=== PATIENT | male | born 1950 | race Caucasian/White ===

== ENCOUNTER → 2019-12-05 | Outpatient (CLI) | payer BC ==
--- NOTE | 2019-12-05 14:50 | XR ---
EXAMINATION TYPE: XR chest 2V DATE OF EXAM: 12/05/2019 COMPARISON: 04/27/2015 TECHNIQUE: PA and lateral views submitted. HISTORY: Cough FINDINGS: The lungs are clear and there is no pneumothorax, pleural effusion, or focal pneumonia. Biapical pl eural thickening. Mild prominence the right is stable. Hyperinflation suggests COPD. IMPRESSION: 1. No acute process. No acute infiltrate. 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
== END | disposition home or self-care (01) ==
LOC: RADXRMAIN 14:37
PROVIDERS: ATTEND Nurse Practitioner Family
DX: R05 Cough (principal)
CPT/HCPCS: 71046

== ENCOUNTER 2020-04-01 10:12 | Emergency (ER) | payer MEDICARE ==
[2020-04-01 10:18] VITALS: BP 166/87; PULSE 86; RESP 16; TEMP 98.2
[2020-04-01] MEDS ORDERED: DEXAMETHASONE 4 MG TAB PO STA (10:26)
[2020-04-01] MEDS ORDERED: CEPHALEXIN 500MG STARTER PACK 4 CAP BTL PO STA (10:28)
--- NOTE | 2020-04-01 10:29 | ED ---
Skin/Abscess/FB HPI - General Chief complaint: Skin/Abscess/Foreign Body Stated complaint: facial swelling Time Seen by Provider: 04/01/20 10:21 Source: patient, RN notes reviewed, old records reviewed Mode of arrival: ambulatory Limitations: no limitations - History of Present Illness Initial comments: 69-year-old male present emergency from she complaint rash . Patient states it started a few days ago after wearing a new mask was moderate and store. He states is a fabric mass. He states rash started shortly after and seemed worse and he finally discontinue wearing the mask states that he noticed some crusting yellow discharge on his chin, cheek region. He has no difficulty swallowing noted deep breathing. Patient states that he normally takes Zyrtec but has not taken last couple days and did not apply any creams to his face. He had no fevers or chills he states that he has a large carton any constant works in but does not feel there is exposed to anything new no new chemicals. Denies any concerns for poison krishna. - Related Data Home Medications Medication Instructions Recorded Confirmed Fluticasone/Salmeterol [Advair 1 inhalation PO RT-BID 02/24/15 04/27/15 250-50 Diskus] Zolpidem [Ambien] 10 mg PO HS PRN 02/24/15 04/27/15 Aspirin 81 mg PO DAILY 03/03/15 04/27/15 Albuterol Inhaler (Mhu) [Ventolin 2 puff INHALATION RT-Q6H PRN 04/27/15 04/27/15 Hfa Inhaler (Mhu)] Multivitamin [Men's Multi-Vitamin] 1 tab PO DAILY 04/27/15 04/27/15 Previous Rx's Medication Instructions Recorded Montelukast [Singulair] 10 mg PO HS #30 tab 03/03/15 ALPRAZolam [Xanax] 0.25 mg PO TID PRN #30 tab 04/29/15 Calcium Carb-Vit D 500Mg-200Un 2 each PO BID-W/MEALS #120 tab 04/29/15 [Oscal 500+D] Meclizine [Antivert] 6.25 mg PO BID PRN #30 tab 04/29/15 Cephalexin [Keflex] 500 mg PO Q6HR #40 cap 04/01/20 Mupirocin Calcium 2% Cream 1 applic TOPICAL TID #30 gm 04/01/20 [Bactroban Cream] Allergies Allergy/AdvReac Type Severity Reaction Status Date / Time No Known Allergies Allergy Verified 04/01/20 10:18 Review of Systems ROS Statement: Those systems with pertinent positive or pertinent negative responses have been documented in the HPI. ROS Other: All systems not noted in ROS Statement are negative. Past Medical History Past Medical History: Asthma, Pneumonia Additional Past Medical History / Comment(s): MURMUR, History of Any Multi-Drug Resistant Organisms: None Reported Past Surgical History: Tonsillectomy Additional Past Surgical History / Comment(s): MEDICAL- weak aortic valve, Past Anesthesia/Blood Transfusion Reactions: No Reported Reaction Past Psychological History: No Psychological Hx Reported Smoking Status: Never smoker Past Alcohol Use History: Occasional Past Drug Use History: Marijuana - Past Family History Father Family Medical History: Myocardial Infarction ([place]) Additional Family Medical History / Comment(s): AT GE 65 [place] Brother(s) Additional Family Medical History / Comment(s): X2 [place] Mother Family Medical History: COPD Additional Family Medical History / Comment(s): SMOKER,EMPHYSEMA General Exam Limitations: no limitations General appearance: alert, in no apparent distress Head exam: Present: atraumatic, normocephalic, normal inspection Eye exam: Present: normal appearance, PERRL, EOMI. Absent: scleral icterus, conjunctival injection, periorbital swelling ENT exam: Present: mucous membranes moist, TM's normal bilaterally, normal external ear exam. Absent: normal oropharynx (Lower lip swelling noted, no oral lesions no difficulty is on secretions) Neck exam: Present: normal inspection, full ROM. Absent: tenderness, meningismus, lymphadenopathy Respiratory exam: Present: normal lung sounds bilaterally. Absent: respiratory distress, wheezes, rales, rhonchi, stridor Cardiovascular Exam: Present: regular rate, normal rhythm, normal heart sounds. Absent: systolic murmur, diastolic murmur, rubs, gallop, clicks Skin exam: Present: warm, dry, intact, normal color, rash (There is erythema, swelling, some blistering with yellow crusting, discharge noted over the cheeks, lower chin region and distribution in the shape of a mask) Course Vital Signs 04/01/20 10:17 Temperature 98.2 F Pulse Rate 86 Respiratory 16 Rate Blood Pressure 166/87 O2 Sat by Pulse 98 Oximetry Medical Decision Making - Medical Decision Making 69-year-old male present for rash, facial swelling. I do believe this is related to his mask which was new causing ALLERGIC reaction though he has secondary staph infection. Patient placed on oral antibiotics, Bactroban cream. Patient was given steroids and advised to continue antihistamines he states he does not tolerate Benadryl well. Patient will continue Zyrtec. Patient denies have recheck tomorrow return for any worsening symptoms. Disposition Clinical Impression: Contact dermatitis, Facial cellulitis Disposition: HOME SELF-CARE Condition: Stable Instructions (If sedation given, give patient instructions): Cellulitis (ED) Additional Instructions: Continue antihistamines as directed. Please return to the Emergency Department if symptoms worsen or any other concerns. Prescriptions: Mupirocin Calcium 2% Cream [Bactroban Cream] 1 applic TOPICAL TID #30 gm Cephalexin [Keflex] 500 mg PO Q6HR #40 cap Is patient prescribed a controlled substance at d/c from ED?: No Referrals: Kal Alaniz MD [Primary Care Provider] - 1-2 days Time of Disposition: 10:29
== END 2020-04-01 10:41 | disposition home or self-care (01) ==
LOC: EC 10:12
DX: L25.8 Unspecified contact dermatitis due to other agents (principal); L03.211 Cellulitis of face; J45.909 Unspecified asthma, uncomplicated
CPT/HCPCS: 99283; J8540

== ENCOUNTER → 2022-08-15 | Outpatient (CLI) | payer MEDICARE ==
--- NOTE | 2022-09-19 11:24 | EM ---
EVENT MONITOR FINDINGS: This was a 30-day event monitor, but the patient wore it only for 5 days. There were several recordings noted. Most of these were manual-triggered rhythm strips. Predominant rhythm is sinus. There was 1 episode, which was an auto-trigger at about 12:50 a.m. on 08/18/2022, and this was about a 10- to 14-beat run of paroxysmal atrial tachycardia. All other rhythm strips were basically sinus mechanism with some artifact. There was another episode of wide QRS tachycardia that occurred on 08/22/2022, at 09:50 p.m. Again, this was an auto-trigger. FINAL IMPRESSION: Predominant rhythm is sinus. There were 2 brief episodes of atrial tachycardia, one of 14 beats and another one of about 8 to 10 beats. There was 1 wide QRS tachycardia run of about 5 beats noted. All of these were auto-trigger. The patient's manual-trigger rhythm strips were all sinus. MMODL / IJN: [id number] /
== END | disposition home or self-care (01) ==
LOC: RADECHMAIN 07:52
PROVIDERS: ATTEND Family Medicine
DX: I47.1 Supraventricular tachycardia (principal); R00.2 Palpitations
CPT/HCPCS: 93270

== ENCOUNTER 2024-04-15 13:05 | Emergency (ER) | payer MEDICARE, BC ==
[2024-04-15 13:10] VITALS: RESP 18
--- NOTE | 2024-04-15 14:35 | XR ---
EXAMINATION TYPE: XR foot complete RT DATE OF EXAM: 04/15/2024 2:30 PM CLINICAL INDICATION:Male, 73 years old with history of pain; COMPARISON: None TECHNIQUE: XR foot complete RT examined in the AP, oblique, and lateral projections. FINDINGS: No evidence of any acute osseous pathology. No evidence of soft tissue swelling. Multifocal degenera tion changes throughout the joints of the foot with osteophyte formation and joint space narrowing. C alcaneal plantar spurring is present. Mild hallux valgus. IMPRESSION: 1. No evidence of acute fracture. 2. Mild calcaneal spurring. 3. Multifocal degeneration changes throughout the joints of the foot. 4. Mild hallux valgus.
--- NOTE | 2024-04-15 15:11 | ED ---
General Adult HPI - General Chief complaint: Extremity Problem,Nontraumatic Stated complaint: R Foot Pain Time Seen by Provider: 04/15/24 13:42 Source: patient, RN notes reviewed Mode of arrival: wheelchair Limitations: no limitations - History of Present Illness Initial comments: 73-year-old male presents to the emergency department for evaluation of right foot pain. He states that this started 2 to 3 days ago but has been worse today. He notes that he has a lot of pain when he puts pressure on the ball of his foot. He states the pain does not radiate. He has not experienced this in the past. He has not taken anything for the pain. He denies any overlying skin changes, prior injury. Denies recent fever, chills. - Related Data Home Medications Medication Instructions Recorded Confirmed Fluticasone Propion/Salmeterol 1 inhalation PO RT-BID 02/24/15 04/27/15 [Advair 250-50 Diskus] Zolpidem [Ambien] 10 mg PO HS PRN 02/24/15 04/27/15 Aspirin 81 mg PO DAILY 03/03/15 04/27/15 Albuterol Inhaler [Ventolin Hfa 2 puff INHALATION RT-Q6H PRN 04/27/15 04/27/15 Inhaler] Multivitamin [Men's Multi-Vitamin] 1 tab PO DAILY 04/27/15 04/27/15 Previous Rx's Medication Instructions Recorded Montelukast [Singulair] 10 mg PO HS #30 tab 03/03/15 ALPRAZolam [Xanax] 0.25 mg PO TID PRN #30 tab 04/29/15 Calcium Carb-Vit D 500Mg-5Mcg 2 each PO BID-W/MEALS #120 tab 04/29/15 [Oscal 500+D 5 Mcg (200 Iu)] Meclizine [Antivert] 6.25 mg PO BID PRN #30 tab 04/29/15 Cephalexin [Keflex] 500 mg PO Q6HR #40 cap 04/01/20 Mupirocin Calcium 2% Cream 1 applic TOPICAL TID #30 gm 04/01/20 [Bactroban Cream] Oseltamivir [Tamiflu] 75 mg PO Q12HR 5 Days #10 cap 02/23/22 predniSONE [Deltasone] 40 mg PO DAILY 5 Days #10 tab 02/23/22 Ketorolac [Toradol] 10 mg PO Q8HR #9 tab 04/15/24 Allergies Allergy/AdvReac Type Severity Reaction Status Date / Time No Known Allergies Allergy Verified 04/15/24 13:10 Review of Systems ROS Statement: Those systems with pertinent positive or pertinent negative responses have been documented in the HPI. ROS Other: All systems not noted in ROS Statement are negative. Past Medical History Past Medical History: Asthma, Pneumonia Additional Past Medical History / Comment(s): MURMUR, History of Any Multi-Drug Resistant Organisms: None Reported Past Surgical History: Tonsillectomy Additional Past Surgical History / Comment(s): MEDICAL- weak aortic valve, Past Anesthesia/Blood Transfusion Reactions: No Reported Reaction Past Psychological History: No Psychological Hx Reported Smoking Status: Never smoker Past Alcohol Use History: Occasional Past Drug Use History: Marijuana - Past Family History Father Family Medical History: Myocardial Infarction ([place]) Additional Family Medical History / Comment(s): AT GE 65 [place] Brother(s) Additional Family Medical History / Comment(s): X2 [place] Mother Family Medical History: COPD Additional Family Medical History / Comment(s): SMOKER,EMPHYSEMA General Exam Limitations: no limitations General appearance: alert, in no apparent distress Head exam: Present: atraumatic, normocephalic, normal inspection Eye exam: Present: normal appearance, PERRL, EOMI. Absent: scleral icterus, conjunctival injection, periorbital swelling Respiratory exam: Present: normal lung sounds bilaterally. Absent: respiratory distress, wheezes, rales, rhonchi, stridor Cardiovascular Exam: Present: regular rate, normal rhythm, normal heart sounds. Absent: systolic murmur, diastolic murmur, rubs, gallop, clicks Extremities exam: Present: full ROM, tenderness (Tenderness to palpation at the region of the distal metatarsals of the right foot), normal capillary refill. Absent: pedal edema, joint swelling, calf tenderness Neurological exam: Present: alert, oriented X3 Psychiatric exam: Present: normal affect, normal mood Skin exam: Present: warm, dry, intact, normal color. Absent: rash Course Vital Signs 04/15/24 04/15/24 13:07 15:24 Temperature 98.0 F 98.1 F Pulse Rate 71 77 Respiratory 18 18 Rate Blood Pressure 131/81 129/87 O2 Sat by Pulse 95 97 Oximetry Medical Decision Making - Medical Decision Making Was pt. sent in by a medical professional or institution (, [facility], [facility], urgent care, hospital, or intermediate...) When possible be specific @ -No Did you speak to anyone other than the patient for history (EMS, parent, family, police, friend...)? What history was obtained from this source @ -No Did you review nursing and triage notes (agree or disagree)? Why? @ -I reviewed and agree with nursing and triage notes Were old charts reviewed (outside hosp., previous admission, EMS record, old EKG, old radiological studies, urgent care reports/EKG's, intermediate records)? Report findings @ -No old charts were reviewed Differential Diagnosis (chest pain, altered mental status, abdominal pain women, abdominal pain men, vaginal bleeding, weakness, fever, dyspnea, syncope, headache, dizziness, GI bleed, back pain, seizure, CVA, palpatations, mental h ealth, musculoskeletal)? @ -Differential Musculoskeletal Muscular strain, contusion, ligament sprain, fracture, arthritis, septic arthritis, bursitis, cellulitis, muscle spasm, nerve compression, DVT, arterial occlusion, herpes zoster, electrolyte abnormality, tumor.... This is not meant to be in all inclusive list EKG interpreted by me (3pts min.). @ -None X-rays interpreted by me (1pt min.). @ -X-ray of the right foot shows osteoarthritic changes with no acute fracture CT interpreted by me (1pt min.). @ -None done U/S interpreted by me (1pt. min.). @ -None done What testing was considered but not performed or refused? (CT, X-rays, U/S, labs)? Why? @ -None What meds were considered but not given or refused? Why? @ -None Did you discuss the management of the patient with other professionals (professionals i.e. [facility] Abdalla, [employer], lab, RT, psych nurse, clinical social work aide, plasma center nurse, teacher, worldwide chief creative officer, counter caser)? Give summary @ -No Was smoking cessation discussed for >3mins.? @ -No Was critical care preformed (if so, how long)? @ -No Were there social determinants of health that impacted care today? How? (Homelessness, low income, unemployed, alcoholism, drug addiction, transpo rtation, low edu. Level, literacy, decrease access to med. care, fci, rehab)? @ -No Was there de-escalation of care discussed even if they declined (Discuss DNR or withdrawal of care, Hospice)? DNR status @ -No What co-morbidities impacted this encounter? (DM, HTN, Smoking, COPD, CAD, Cancer, CVA, ARF, Chemo, Hep., AIDS, mental health diagnosis, sleep apnea, morbid obesity)? @ -None Was patient admitted / discharged? Hospital course, mention meds given and route, prescriptions, significant lab abnormalities, going to OR and other pertinent info. @ -Discharge. Patient presented to the emergency department for evaluation of foot pain x 2 to 3 days. X-rays obtained showed no acute process chronic osteoarthritic changes. Patient provided a dose of medication for pain control while in the emergency department. Advised to follow-up with PCP and podiatry if no improvement. Patient understanding agreeable plan. Patient stable at time of discharge. Case discussed with Dr. Mcfarlane Undiagnosed new problem with uncertain prognosis? @ -No Drug Therapy requiring intensive monitoring for toxicity (Heparin, Nitro, Insulin, Cardizem)? @ -No Were any procedures done? @ -No Diagnosis/symptom? @ -Foot pain Acute, or Chronic, or Acute on Chronic? @ -Acute Uncomplicated (without systemic symptoms) or Complicated (systemic symptoms)? @ -Uncomplicated Side effects of treatment? @ -No Exacerbation, Progression, or Severe Exacerbation? @ -No Poses a threat to life or bodily function? How? (Chest pain, [place], [place], pneumonia, PE, COPD, DKA, ARF, appy, cholecystitis, CVA, Diverticulitis, Homicidal, Suicidal, threat to staff... and all critical care pts) @ -No Disposition Clinical Impression: Metatarsalgia Disposition: HOME SELF-CARE Condition: Stable Instructions (If sedation given, give patient instructions): Metatarsalgia (DC) Additional Instructions: Please utilize anti-inflammatory medications. Rest, ice, elevate the foot and ankle. Follow up with orthopedics or podiatry. Return to the emergency department for new or worsening symptoms. Prescriptions: Ketorolac [Toradol] 10 mg PO Q8HR #9 tab Is patient prescribed a controlled substance at d/c from ED?: No Referrals: Kal Alaniz MD [Primary Care Provider] - 1-2 days
[2024-04-15] MEDS: ACET/COD 300 MG/30 MG STARTER PACK 6 TAB BTL PO STA (15:16)
[2024-04-15] MEDS: ACETAMINOPHEN TAB 500 MG TAB PO STA (15:17)
[2024-04-15] MEDS: KETOROLAC 15 MG/ML 1 ML VIAL IM STA (15:17)
[2024-04-15 15:26] VITALS: BP 129/87; PULSE 77; TEMP 98.1
== END 2024-04-15 15:26 | disposition home or self-care (01) ==
LOC: EC 13:05
DX: M79.671 Pain in right foot (principal)
CPT/HCPCS: 73630; 99283; 96372; J1885

== ENCOUNTER 2025-03-03 14:16 | Emergency (ER) | payer BC, MEDICARE ==
--- NOTE | 2025-03-03 17:00 | ED ---
Psych HPI - General Chief Complaint: Psychiatric Symptoms Stated Complaint: mental health Time Seen by Provider: 03/03/25 15:30 Source: patient Mode of arrival: wheelchair - History of Present Illness Initial Comments: 74-year-old male with past medical history of severe anxiety and depression who presents emergency department stating "I am having a mental break". Patient reports to worsening symptoms of anxiety that he feels as if he cannot control. He reports the tremors. He is currently taking his medications that he is prescribed but states that he still feels out of control. Patient has been hospitalized 3 times at a psychiatric facility for this. Reports undergoing ECT. States that nothing helps him and this is what scares him the most. He denies any significant life event which is making him feel this way. He states he drinks 2 glasses of wine per night. He has not drank in a couple of days. He denies any substance abuse. Denies suicidal ideations. No homicidal ideations. No other alleviating, precipitating or modifying factors - Related Data Home Medications Medication Instructions Recorded Confirmed Albuterol Inhaler [Ventolin Hfa 2 puff INHALATION RT-Q6H PRN 04/27/15 03/03/25 Inhaler] Citalopram Hydrobromide [CeleXA] 40 mg PO DAILY 03/03/25 03/03/25 LORazepam [Ativan] 0.5 mg PO DAILY 03/03/25 03/03/25 Rosuvastatin [Crestor] 10 mg PO HS 03/03/25 03/03/25 Zolpidem [Ambien] 5 mg PO HS 03/03/25 03/03/25 buPROPion XL [Wellbutrin XL] 300 mg PO DAILY 03/03/25 03/03/25 busPIRone HCl [Buspar] 5 mg PO DAILY 03/03/25 03/03/25 traZODone HCL [Desyrel] 50 mg PO HS 03/03/25 03/03/25 Previous Rx's Medication Instructions Recorded ALPRAZolam [Xanax] 0.5 mg PO TID PRN #9 tablet 03/03/25 Allergies Allergy/AdvReac Type Severity Reaction Status Date / Time No Known Allergies Allergy Verified 03/03/25 17:06 Review of Systems ROS Statement: Those systems with pertinent positive or pertinent negative responses have been documented in the HPI. ROS Other: All systems not noted in ROS Statement are negative. Past Medical History Past Medical History: Asthma, Pneumonia Additional Past Medical History / Comment(s): MURMUR, History of Any Multi-Drug Resistant Organisms: None Reported Past Surgical History: Tonsillectomy Additional Past Surgical History / Comment(s): open heart. MEDICAL- weak aortic valve, Past Anesthesia/Blood Transfusion Reactions: No Reported Reaction Past Psychological History: No Psychological Hx Reported Smoking Status: Never smoker Past Alcohol Use History: Occasional Past Drug Use History: Marijuana - Past Family History Father Family Medical History: Myocardial Infarction (SC) Additional Family Medical History / Comment(s): AT GE 65 SC Brother(s) Additional Family Medical History / Comment(s): X2 SC Mother Family Medical History: COPD Additional Family Medical History / Comment(s): SMOKER,EMPHYSEMA General Exam Limitations: no limitations General appearance: alert, anxious, in distress Head exam: Present: atraumatic, normocephalic, normal inspection Eye exam: Present: normal appearance, PERRL, EOMI. Absent: scleral icterus, conjunctival injection, periorbital swelling ENT exam: Present: normal exam, mucous membranes moist Neck exam: Present: normal inspection. Absent: tenderness, meningismus, lymphadenopathy Respiratory exam: Present: normal lung sounds bilaterally. Absent: respiratory distress, wheezes, rales, rhonchi, stridor Cardiovascular Exam: Present: regular rate, normal rhythm, normal heart sounds. Absent: systolic murmur, diastolic murmur, rubs, gallop, clicks GI/Abdominal exam: Present: soft, normal bowel sounds. Absent: distended, tenderness, guarding, rebound, rigid Extremities exam: Present: normal inspection, full ROM, normal capillary refill. Absent: tenderness, pedal edema, joint swelling, calf tenderness Back exam: Present: normal inspection Neurological exam: Present: alert, oriented X3, CN II-XII intact Psychiatric exam: Present: depressed, anxious Skin exam: Present: warm, dry, intact, normal color. Absent: rash Course Vital Signs 03/03/25 03/03/25 14:30 19:27 Temperature 97.8 F 98.3 F Pulse Rate 79 91 Respiratory 17 18 Rate Blood Pressure 148/81 141/88 O2 Sat by Pulse 95 96 Oximetry Medical Decision Making - Medical Decision Making Was pt. sent in by a medical professional or institution (DEACON Abdalla, RESIDENTIAL PROGRAM WORKER, urgent care, hospital, or custodial...) When possible be specific @ -No Did you speak to anyone other than the patient for history (EMS, parent, family, police, friend...)? What history was obtained from this source @ -Spoke with for history Did you review nursing and triage notes (agree or disagree)? Why? @ -I reviewed and agree with nursing and triage notes Were old charts reviewed (outside hosp., previous admission, EMS record, old EKG, old radiological studies, urgent care reports/EKG's, custodial records)? Report findings @ -No old charts were reviewed Differential Diagnosis (chest pain, altered mental status, abdominal pain women, abdominal pain men, vaginal bleeding, weakness, fever, dyspnea, syncope, headache, dizziness, GI bleed, back pain, seizure, CVA, palpatations, mental health, musculoskeletal)? @ -Differential Mental Health Depression, anxiety, bipolar, psychosis, schizophrenia, borderline personality, situational depression, adjustment disorder, behavioral disorder, brain tumor, malingering, substance abuse, encephalopathy, medication reaction, dementia, hy pothyroidism, degenerative neurologic disorder, lupus.... This is not meant to be all-inclusive list EKG interpreted by me (3pts min.). @ -Not done X-rays interpreted by me (1pt min.). @ -None done CT interpreted by me (1pt min.). @ -None done U/S interpreted by me (1pt. min.). @ -None done What testing was considered but not performed or refused? (CT, X-rays, U/S, labs)? Why? @ -None What meds were considered but not given or refused? Why? @ -None Did you discuss the management of the patient with other professionals (professionals i.e. DEACON Abdalla, RESIDENTIAL PROGRAM WORKER, lab, RT, psych nurse, social worker masters, brake repairer bus, teacher, business liaison officer, piano case and bench assembler)? Give summary @ -Spoke with EPS to evaluate the patient Was smoking cessation discussed for >3mins.? @ -No Was critical care preformed (if so, how long)? @ -No Were there social determinants of health that impacted care today? How? (Homelessness, low income, unemployed, alcoholism, drug addiction, transportation, low edu. Level, literacy, decrease access to med. care, assisted, rehab)? @ -No Was there de-escalation of care discussed even if they declined (Discuss DNR or withdrawal of care, Hospice)? DNR status @ -No What co-morbidities impacted this encounter? (DM, HTN, Smoking, COPD, CAD, Cancer, CVA, ARF, Chemo, Hep., AIDS, mental health diagnosis, sleep apnea, morbid obesity)? @ -Anxiety Was patient admitted / discharged? Hospital course, mention meds given and route, prescriptions, significant lab abnormalities, going to OR and other pertinent info. @ -Discharge. Upon arrival patient seen and evaluated in bed 7. Thorough history and physical exam was performed. Patient is made medically clear. He is evaluated by EPS. Patient does not meet inpatient criteria. May benefit from benzo use. I did prescribe the patient 9 pills which is a 3-day course. He will follow-up with his own psychiatrist for possible longer course. Return to the emergency department for any new or worsening symptoms. Patient agreeable to plan was discharged in stable condition Undiagnosed new problem with uncertain prognosis? @ -No Drug Therapy requiring intensive monitoring for toxicity (Heparin, Nitro, Insulin, Cardizem)? @ -No Were any procedures done? @ -No Diagnosis/symptom? @ -Acute anxiety Acute, or Chronic, or Acute on Chronic? @ -Acute on chronic Uncomplicated (without systemic symptoms) or Complicated (systemic symptoms)? @ -Complicated Side effects of treatment? @ -No Exacerbation, Progression, or Severe Exacerbation? @ -yes Poses a threat to life or bodily function? How? (Chest pain, USA, SC, pneumonia, PE, COPD, DKA, ARF, appy, cholecystitis, CVA, Diverticulitis, Homicidal, Suicidal, threat to staff... and all critical care pts) @ -No - Lab Data Lab Results 03/03/25 03/03/25 Range/Units 17:04 17:04 Urine Color Yellow Urine Appearance Clear (Clear) Urine pH 6.5 (5.0-8.0) Ur Specific [place] 1.026 (1.001-1.035) Urine Protein Trace H (Negative) Urine Glucose (UA) Negative (Negative) Urine Ketones 1+ H (Negative) Urine Blood Negative (Negative) Urine Nitrite Negative (Negative) Urine Bilirubin Negative (Negative) Urine Urobilinogen <2.0 (<2.0) mg/dL Ur Leukocyte Esterase Negative (Negative) Urine Opiates Screen Not Detected (NotDetected) Ur Oxycodone Screen Not Detected (NotDetected) Urine Methadone Screen Not Detected (NotDetected) Ur Barbiturates Screen Not Detected (NotDetected) U Tricyclic Antidepress Not Detected (NotDetected) Ur Phencyclidine Scrn Not Detected (NotDetected) Ur Amphetamines Screen Not Detected (NotDetected) U Methamphetamines Scrn Not Detected (NotDetected) U Benzodiazepines Scrn Detected H (NotDetected) Urine Cocaine Screen Not Detected (NotDetected) U Marijuana (THC) Screen Detected H (NotDetected) Disposition Clinical Impression: Acute anxiety Disposition: HOME SELF-CARE Condition: Stable Instructions (If sedation given, give patient instructions): Generalized Anxiety Disorder (ED) Additional Instructions: Please take the Xanax up to 3 times daily. I am only able to place you on a 3- day course of the medications as I am an ER doctor. Talk to your primary about going on this long-term as they can give you a longer course of medications. Return for any new or worsening symptoms Prescriptions: ALPRAZolam [Xanax] 0.5 mg PO TID PRN #9 tablet PRN Reason: Anxiety Is patient prescribed a controlled substance at d/c from ED?: Yes When asked, does pt state using other controlled substances?: No If prescribed controlled substance>3 days was MAPS reviewed?: Prescribed <3 Days Referrals: Kal Alaniz MD [Primary Care Provider] - 1-2 days Time of Disposition: 19:03
[2025-03-03] MEDS: LORazepam 1 MG TAB PO STA (17:06)
[2025-03-03 17:38] LABS: Appearance,Urine Clear (Clear); Bilirubin,Urine Negative (Negative); Blood,Urine Negative (Negative); Color,Urine Yellow; Glucose,Urine (UA) Negative (Negative); Ketones,Urine 1+ (Negative); Leukocyte Esterase,Urine Negative (Negative); Nitrite,Urine Negative (Negative); PH, Urine 6.5 (5.0-8.0); Protein,Urine Trace (Negative); Specific Gravity,Urine 1.026 (1.001-1.035); Urobilinogen,Urine <2.0 mg/dL (<2.0)
[2025-03-03 17:50] LABS: Amphetamine Screen,Urine Not Detected (NotDetected); Barbiturate Screen,Urine Not Detected (NotDetected); Benzodiazepines Screen,Urine Detected (NotDetected); Cocaine Screen,Urine Not Detected (NotDetected); Methadone Screen, Urine Not Detected (NotDetected); Opiate Screen,Urine Not Detected (NotDetected); Oxycodone Screen, Urine Not Detected (NotDetected); Phencyclidine Screen,Urine Not Detected (NotDetected); Tricyclic Antidepressant,Urine Not Detected (NotDetected); Urn Cannabinoid Scrn Detected (NotDetected)
[2025-03-03 19:32] VITALS: BP 141/88; PULSE 91; RESP 18; TEMP 98.3
== END 2025-03-03 19:32 | disposition home or self-care (01) ==
LOC: EC 14:16
DX: F41.9 Anxiety disorder, unspecified (principal)
CPT/HCPCS: 80306; 81003; 82075; 99285

== ENCOUNTER 2025-04-24 13:39 | Emergency (ER) | payer MEDICARE ==
[2025-04-24] MEDS: SODIUM CHLORIDE 0.9% 1,000 ML IV ONE (14:47)
[2025-04-24 15:10] LABS: ALT 19 U/L (4-49); AST 26 U/L (17-59); Acetaminophen <10.0 ug/mL; African American GFR (CKD) >90 (>60 ml/min/1.73 sqM); Albumin 3.9 g/dL (3.5-5.0); Alkaline Phosphatase 87 U/L (38-126); Anion Gap 8 mmol/L; Blood Urea Nitrogen 14 mg/dL (9-20); Calcium 8.8 mg/dL (8.4-10.2); Carbon Dioxide 21 mmol/L (22-30); Chloride 110 mmol/L (98-107); Glucose 113 mg/dL (74-99); Non-African American GFR(CKD) >90 (>60 ml/min/1.73 sqM); Potassium 4.4 mmol/L (3.5-5.1); Salicylate <1.0 mg/dL; Sodium 139 mmol/L (137-145); Total Protein 6.4 g/dL (6.3-8.2)
[2025-04-24 15:14] LABS: Basophils # (A) 0.04 10*3/uL (0.00-0.10); Basophils % (A) 0.3 %; Eosinophils # (A) 0.02 10*3/uL (0.04-0.35); Eosinophils % (A) 0.2 %; HCT 45.0 % (39.6-50.0); HGB 14.7 g/dL (13.0-17.0); Lymphocytes # (A) 0.48 10*3/uL (0.90-5.00); Lymphocytes % (A) 4.0 %; MCH 30.1 pg (27.0-32.0); MCHC 32.7 g/dL (32.0-37.0); MCV 92.0 fL (80.0-97.0); Monocytes # (A) 0.39 10*3/uL (0.20-1.00); Monocytes % (A) 3.3 %; Neutrophils # (A) 10.90 10*3/uL (1.80-7.70); Neutrophils % (A) 91.9 %; Platelet Count 198 10*3/uL (140-440); RBC 4.89 10*6/uL (4.40-5.60); RDW 12.2 % (11.5-14.5); WBC 11.87 10*3/uL (4.50-10.00)
--- NOTE | 2025-04-24 15:38 | ED ---
Psych HPI - General Source: patient, EMS Mode of arrival: EMS <Ashley Conner - Last Filed: 04/24/25 15:37> - General Source: patient, EMS, RN notes reviewed, old records reviewed Mode of arrival: EMS Limitations: altered mental status <Pastor Mcfarlane - Last Filed: 04/24/25 21:55> - General Chief Complaint: Psychiatric Symptoms Stated Complaint: Overdose Time Seen by Provider: 04/24/25 13:45 - History of Present Illness Initial Comments: 74-year-old male with past medical history of anxiety presents emergency department after he overdosed on medications. left the house around 9:00 to take her daughter to work. At this time the patient states he took extra pills of his Xanax, Ambien and Remeron. He reports a significant anxiety and states that he was trying to end his life. Admits to several hospitalizations for mental health however has not attempted overdose previously. Patient denies any chest pain or shortness of breath. Extremity fatigued upon my exam. Denies substance abuse issues. No other alleviating, precipitating or modifying factors (Ashley Conner) This is a 74-year-old male for psychiatric evaluation anxiety and recent drug overdose with suicidal intent (Pastor Mcfarlane) - Related Data Home Medications Medication Instructions Recorded Confirmed Albuterol Inhaler [Ventolin Hfa 2 puff INHALATION RT-QID PRN 04/27/15 04/24/25 Inhaler] Citalopram Hydrobromide [CeleXA] 40 mg PO DAILY 03/03/25 04/24/25 Rosuvastatin [Crestor] 10 mg PO HS 03/03/25 04/24/25 Zolpidem [Ambien] 5 mg PO HS 03/03/25 04/24/25 Gabapentin [Neurontin] 100 mg PO QID 04/24/25 04/24/25 Mirtazapine [Remeron] 22.5 mg PO HS 04/24/25 04/24/25 Allergies Allergy/AdvReac Type Severity Reaction Status Date / Time No Known Allergies Allergy Verified 04/24/25 15:57 Review of Systems ROS Other: All systems not noted in ROS Statement are negative. <Ashley Conner - Last Filed: 04/24/25 15:37> ROS Other: All systems not noted in ROS Statement are negative. <Pastor Mcfarlane - Last Filed: 04/24/25 21:55> ROS Statement: Those systems with pertinent positive or pertinent negative responses have been documented in the HPI. Past Medical History Past Medical History: Asthma, Pneumonia Additional Past Medical History / Comment(s): MURMUR, History of Any Multi-Drug Resistant Organisms: None Reported Past Surgical History: Tonsillectomy Additional Past Surgical History / Comment(s): open heart. MEDICAL- weak aortic valve, Past Anesthesia/Blood Transfusion Reactions: No Reported Reaction Past Psychological History: No Psychological Hx Reported Smoking Status: Never smoker Past Alcohol Use History: Occasional Past Drug Use History: Marijuana - Past Family History Father Family Medical History: Myocardial Infarction ([place]) Additional Family Medical History / Comment(s): AT GE 65 [place] Brother(s) Additional Family Medical History / Comment(s): X2 [place] Mother Family Medical History: COPD Additional Family Medical History / Comment(s): SMOKER,EMPHYSEMA <Ashley Conner - Last Filed: 04/24/25 15:37> General Exam Limitations: altered mental status General appearance: lethargic Head exam: Present: atraumatic, normocephalic, normal inspection Eye exam: Present: normal appearance, PERRL, EOMI. Absent: scleral icterus, conjunctival injection, periorbital swelling ENT exam: Present: normal exam, mucous membranes moist Neck exam: Present: normal inspection. Absent: tenderness, meningismus, lymphadenopathy Respiratory exam: Present: normal lung sounds bilaterally. Absent: respiratory distress, wheezes, rales, rhonchi, stridor Cardiovascular Exam: Present: regular rate, normal rhythm, normal heart sounds. Absent: systolic murmur, diastolic murmur, rubs, gallop, clicks Extremities exam: Present: normal inspection, full ROM, normal capillary refill. Absent: tenderness, pedal edema, joint swelling, calf tenderness Psychiatric exam: Present: depressed, flat affect Skin exam: Present: warm, dry, intact, normal color. Absent: rash <DalilaAshley Mora - Last Filed: 04/24/25 15:37> General appearance: alert, in no apparent distress Head exam: Present: atraumatic, normocephalic, normal inspection Eye exam: Present: normal appearance, PERRL, EOMI. Absent: scleral icterus, conjunctival injection, periorbital swelling ENT exam: Present: normal exam, mucous membranes moist Neck exam: Present: normal inspection. Absent: tenderness, meningismus, lymphadenopathy Respiratory exam: Present: normal lung sounds bilaterally. Absent: respiratory distress, wheezes, rales, rhonchi, stridor Cardiovascular Exam: Present: regular rate, normal rhythm, normal heart sounds. Absent: systolic murmur, diastolic murmur, rubs, gallop, clicks GI/Abdominal exam: Present: soft, normal bowel sounds. Absent: distended, tenderness, guarding, rebound, rigid Extremities exam: Present: normal inspection, full ROM, normal capillary refill. Absent: tenderness, pedal edema, joint swelling, calf tenderness Back exam: Present: normal inspection Neurological exam: Present: alert, oriented X3, CN II-XII intact Psychiatric exam: Present: normal affect, normal mood Skin exam: Present: warm, dry, intact, normal color. Absent: rash <Pastor Mcfarlane - Last Filed: 04/24/25 21:55> Course <Pastor Mcfarlane - Last Filed: 04/24/25 21:55> Vital Signs 04/24/25 04/24/25 04/24/25 13:44 14:52 15:48 Temperature 97.8 F Pulse Rate 86 71 86 Respiratory 20 16 16 Rate Blood Pressure 142/90 114/78 139/79 O2 Sat by Pulse 95 96 100 Oximetry 04/24/25 04/24/25 04/24/25 16:14 17:15 18:47 Temperature Pulse Rate 70 69 77 Respiratory 16 18 16 Rate Blood Pressure 133/72 123/64 118/45 O2 Sat by Pulse 95 98 95 Oximetry 04/24/25 19:35 Temperature Pulse Rate 61 Respiratory 16 Rate Blood Pressure 141/78 O2 Sat by Pulse 95 Oximetry - Reevaluation(s) Reevaluation #1: 04/24/25 21:55 Medical records reviewed (Pastor Mcfarlane) Reevaluation #2: 04/24/25 21:55 Medically cleared for psychiatric evaluation (Pastor Mcfarlane) Reevaluation #3: 04/24/25 21:55 Differential Mental Health Depression, anxiety, bipolar, psychosis, schizophrenia, borderline personality, situational depression, adjustment disorder, behavioral disorder, brain tumor, malingering, substance abuse, encephalopathy, medication reaction, dementia, hypothyroidism, degenerative neurologic disorder, lupus.... This is not meant to be all-inclusive list (Pastor Mcfarlane) Medical Decision Making - Lab Data Result diagrams: 04/24/25 14:40 04/24/25 14:40 <Ashley Conner - Last Filed: 04/24/25 15:37> - Lab Data Result diagrams: 04/24/25 14:40 04/24/25 14:40 <Pastor Mcfarlane - Last Filed: 04/24/25 21:55> - Medical Decision Making Was pt. sent in by a medical professional or institution (, PA, JIGGER OPERATOR, urgent care, hospital, or senior living...) When possible be specific @ -[No] Did you speak to anyone other than the patient for history (EMS, parent, family, police, friend...)? What history was obtained from this source @ -[No] Did you review nursing and triage notes (agree or disagree)? Why? @ -[I reviewed and agree with nursing and triage notes] Were old charts reviewed (outside hosp., previous admission, EMS record, old EKG, old radiological studies, urgent care reports/EKG's, senior living records)? Report findings @ -[No old charts were reviewed] Differential Diagnosis (chest pain, altered mental status, abdominal pain women, abdominal pain men, vaginal bleeding, weakness, fever, dyspnea, syncope, headache, dizziness, GI bleed, back pain, seizure, CVA, palpatations, mental health, musculoskeletal)? @ -[not applicable] EKG interpreted by me (3pts min.). @ -Yes and demonstrates sinus rhythm with a rate of 82. PA interval 175. QRS 89. QTc of 409. No acute ST segment elevations or depressions X-rays interpreted by me (1pt min.). @ -[None done] CT interpreted by me (1pt min.). @ -[None done] U/S interpreted by me (1pt. min.). @ -[None done] What testing was considered but not performed or refused? (CT, X-rays, U/S, labs)? Why? @ -[None] What meds were considered but not given or refused? Why? @ -[None] Did you discuss the management of the patient with other professionals (professionals i.e. , PA, JIGGER OPERATOR, lab, RT, psych nurse, social service manager, product developer, teacher, project control officer, senior case manager)? Give summary @ -[No] Was smoking cessation discussed for >3mins.? @ -[No] Was critical care preformed (if so, how long)? @ -[No] Were there social determinants of health that impacted care today? How? (Homelessness, low income, unemployed, alcoholism, drug addiction, transportation, low edu. Level, literacy, decrease access to med. care, detention, rehab)? @ -[No] Was there de-escalation of care discussed even if they declined (Discuss DNR or withdrawal of care, Hospice)? DNR status @ -[No] What co-morbidities impacted this encounter? (DM, HTN, Smoking, COPD, CAD, Cancer, CVA, ARF, Chemo, Hep., AIDS, mental health diagnosis, sleep apnea, morbid obesity)? @ -[None] Was patient admitted / discharged? Hospital course, mention meds given and route, prescriptions, significant lab abnormalities, going to OR and other pertinent info. @ -[hospital course] Undiagnosed new problem with uncertain prognosis? @ -[No] Drug Therapy requiring intensive monitoring for toxicity (Heparin, Nitro, Insulin, Cardizem)? @ -[No] Were any procedures done? @ -[No] Diagnosis/symptom? @ -[default] Acute, or Chronic, or Acute on Chronic? @ -[default] Uncomplicated (without systemic symptoms) or Complicated (systemic symptoms)? @ -[default] Side effects of treatment? @ -[No] Exacerbation, Progression, or Severe Exacerbation? @ -[No] Poses a threat to life or bodily function? How? (Chest pain, [place], [place], pneumonia, PE, COPD, DKA, ARF, appy, cholecystitis, CVA, Diverticulitis, Homicidal, Suicidal, threat to staff... and all critical care pts) @ -[No] (Ashley Conner) 74 male will be transferred for inpatient psychiatric evaluation and treatment, geriatric psychiatry (Pastor Mcfarlane) - Lab Data Lab Results 04/24/25 04/24/25 04/24/25 Range/Units 14:40 14:40 14:40 WBC 11.87 H (4.50-10.00) 10*3/uL RBC 4.89 (4.40-5.60) 10*6/uL Hgb 14.7 (13.0-17.0) g/dL Hct 45.0 (39.6-50.0) % MCV 92.0 (80.0-97.0) fL MCH 30.1 (27.0-32.0) pg MCHC 32.7 (32.0-37.0) g/dL Plt Count 198 (140-440) 10*3/uL MPV 9.6 (9.5-12.2) fL Immature Gran % (Auto) 0.3 % Neutrophils % 91.9 % Lymphocytes % 4.0 % Monocytes % 3.3 % Eosinophils % 0.2 % Basophils % 0.3 % Immature Gran # 0.04 (0.00-0.04) 10*3/uL Neutrophils # 10.90 H (1.80-7.70) 10*3/uL Lymphocytes # 0.48 L (0.90-5.00) 10*3/uL Monocytes # 0.39 (0.20-1.00) 10*3/uL Eosinophils # 0.02 L (0.04-0.35) 10*3/uL Basophils # 0.04 (0.00-0.10) 10*3/uL Sodium 139 (137-145) mmol/L Potassium 4.4 (3.5-5.1) mmol/L Chloride 110 H (98-107) mmol/L Carbon Dioxide 21 L (22-30) mmol/L Anion Gap 8 mmol/L BUN 14 (9-20) mg/dL Creatinine 0.73 (0.66-1.25) mg/dL Est GFR (CKD-EPI)AfAm >90 (>60 ml/min/1.73 sqM) Est GFR (CKD-EPI)NonAf >90 (>60 ml/min/1.73 sqM) Glucose 113 H (74-99) mg/dL Plasma Lactic Acid [place] (0.7-2.0) mmol/L Calcium 8.8 (8.4-10.2) mg/dL Total Bilirubin 0.7 (0.2-1.3) mg/dL AST 26 (17-59) U/L ALT 19 (4-49) U/L Alkaline Phosphatase 87 (38-126) U/L Creatine Kinase 88 (55-170) U/L Total Protein 6.4 (6.3-8.2) g/dL Albumin 3.9 (3.5-5.0) g/dL Urine Color Urine Appearance (Clear) Urine pH (5.0-8.0) Ur Specific [place] (1.001-1.035) Urine Protein (Negative) Urine Glucose (UA) (Negative) Urine Ketones (Negative) Urine Blood (Negative) Urine Nitrite (Negative) Urine Bilirubin (Negative) Urine Urobilinogen (<2.0) mg/dL Ur Leukocyte Esterase (Negative) Salicylates <1.0 mg/dL Urine Opiates Screen (NotDetected) Ur Oxycodone Screen (NotDetected) Urine Methadone Screen (NotDetected) Acetaminophen <10.0 ug/mL Ur Barbiturates Screen (NotDetected) U Tricyclic Antidepress (NotDetected) Ur Phencyclidine Scrn (NotDetected) Ur Amphetamines Screen (NotDetected) U Methamphetamines Scrn (NotDetected) U Benzodiazepines Scrn (NotDetected) Urine Cocaine Screen (NotDetected) U Marijuana (THC) Screen (NotDetected) Serum Alcohol <10 mg/dL 04/24/25 04/24/25 04/24/25 Range/Units 15:15 15:37 15:37 WBC (4.50-10.00) 10*3/uL RBC (4.40-5.60) 10*6/uL Hgb (13.0-17.0) g/dL Hct (39.6-50.0) % MCV (80.0-97.0) fL MCH (27.0-32.0) pg MCHC (32.0-37.0) g/dL Plt Count (140-440) 10*3/uL MPV (9.5-12.2) fL Immature Gran % (Auto) % Neutrophils % % Lymphocytes % % Monocytes % % Eosinophils % % Basophils % % Immature Gran # (0.00-0.04) 10*3/uL Neutrophils # (1.80-7.70) 10*3/uL Lymphocytes # (0.90-5.00) 10*3/uL Monocytes # (0.20-1.00) 10*3/uL Eosinophils # (0.04-0.35) 10*3/uL Basophils # (0.00-0.10) 10*3/uL Sodium (137-145) mmol/L Potassium (3.5-5.1) mmol/L Chloride (98-107) mmol/L Carbon Dioxide (22-30) mmol/L Anion Gap mmol/L BUN (9-20) mg/dL Creatinine (0.66-1.25) mg/dL Est GFR (CKD-EPI)AfAm (>60 ml/min/1.73 sqM) Est GFR (CKD-EPI)NonAf (>60 ml/min/1.73 sqM) Glucose (74-99) mg/dL Plasma Lactic Acid [place] 1.2 (0.7-2.0) mmol/L Calcium (8.4-10.2) mg/dL Total Bilirubin (0.2-1.3) mg/dL AST (17-59) U/L ALT (4-49) U/L Alkaline Phosphatase (38-126) U/L Creatine Kinase (55-170) U/L Total Protein (6.3-8.2) g/dL Albumin (3.5-5.0) g/dL Urine Color Colorless Urine Appearance Clear (Clear) Urine pH 5.5 (5.0-8.0) Ur Specific [place] 1.012 (1.001-1.035) Urine Protein Negative (Negative) Urine Glucose (UA) Negative (Negative) Urine Ketones Negative (Negative) Urine Blood Negative (Negative) Urine Nitrite Negative (Negative) Urine Bilirubin Negative (Negative) Urine Urobilinogen <2.0 (<2.0) mg/dL Ur Leukocyte Esterase Negative (Negative) Salicylates mg/dL Urine Opiates Screen Not Detected (NotDetected) Ur Oxycodone Screen Not Detected (NotDetected) Urine Methadone Screen Not Detected (NotDetected) Acetaminophen ug/mL Ur Barbiturates Screen Not Detected (NotDetected) U Tricyclic Antidepress Not Detected (NotDetected) Ur Phencyclidine Scrn Not Detected (NotDetected) Ur Amphetamines Screen Not Detected (NotDetected) U Methamphetamines Scrn Not Detected (NotDetected) U Benzodiazepines Scrn Detected H (NotDetected) Urine Cocaine Screen Not Detected (NotDetected) U Marijuana (THC) Screen Not Detected (NotDetected) Serum Alcohol mg/dL Disposition <Ashley Conner A - Last Filed: 04/24/25 15:37> Is patient prescribed a controlled substance at d/c from ED?: No <Pastor Mcfarlane - Last Filed: 04/24/25 21:55> Clinical Impression: Adjustment reaction of adult life, Suicidal ideation, Attempted suicide Disposition: TRANSFER TO PSYCH HOSP/UNIT Condition: Fair Referrals: Kal Alaniz MD [Primary Care Provider] - 1-2 days
[2025-04-24 15:50] LABS: Bilirubin,Urine Negative (Negative); Blood,Urine Negative (Negative); Color,Urine Colorless; Glucose,Urine (UA) Negative (Negative); Ketones,Urine Negative (Negative); Leukocyte Esterase,Urine Negative (Negative); Nitrite,Urine Negative (Negative); PH, Urine 5.5 (5.0-8.0); Protein,Urine Negative (Negative); Specific Gravity,Urine 1.012 (1.001-1.035); Urobilinogen,Urine <2.0 mg/dL (<2.0)
[2025-04-24 15:59] LABS: Barbiturate Screen,Urine Not Detected (NotDetected); Benzodiazepines Screen,Urine Detected (NotDetected); Opiate Screen,Urine Not Detected (NotDetected); Oxycodone Screen, Urine Not Detected (NotDetected); Phencyclidine Screen,Urine Not Detected (NotDetected); Tricyclic Antidepressant,Urine Not Detected (NotDetected); Urn Cannabinoid Scrn Not Detected (NotDetected)
[2025-04-24 22:40] LABS: RSV Not Detected (Not Detectd)
[2025-04-24] MEDS: LORazepam 1 MG TAB PO STA (22:46)
[2025-04-25 11:05] VITALS: BP 148/87; PULSE 91; RESP 20; TEMP 98.4
== END 2025-04-25 11:35 ==
LOC: EC 13:39
DX: F43.20 Adjustment disorder, unspecified (principal); R45.851 Suicidal ideations; Z11.52 Encounter for screening for COVID-19
CPT/HCPCS: 36415; 80053; 80143; 80179; 80306; 80320; 81003; 82075; 82550; 83605; 85025; 87636; 93005; 96360; 96361; 99284